=== PATIENT | female | born 1995 | race American Indian/Alaskan Native ===

== ENCOUNTER 2019-10-22 20:26 | Emergency (ER) | payer BC ==
--- NOTE | 2019-10-22 20:54 | EDM.PDOC ---
ED HPI GENERAL MEDICAL PROBLEM - General Chief Complaint: Abdominal Pain Stated Complaint: abdominal pain Time Seen by Provider: 10/22/19 20:44 Source of Information: Reports: Patient History Limitations: Reports: No Limitations - History of Present Illness INITIAL COMMENTS - FREE TEXT/NARRATIVE: Patient is a 24-year-old female who is 15 weeks who comes to the emergency department with having left-sided abdominal pain for the last 2 weeks which is gotten worse over the last 2 days. Patient describes his pain as episodic and sharp and stabbing in nature. She says it comes on for approximately 30 seconds and then goes away for 30 seconds. She was originally thinking this was round ligament pain but symptoms have gotten worse. Patient was seen at her clinic 4 days ago and diagnosed with a UTI and started on an antibiotic which he has not been able to fill. She denies any change in her pain with eating or with movement and denies any fever or shaking chills. Patient states she has not had similar symptoms in the past and denies any cramping type abdominal pain. She has no past surgical history. Duration: Day(s): (Two) Location: Reports: Abdomen Quality: Reports: Sharp, Stabbing Severity: Moderate Improves with: Reports: None Worsens with: Reports: None Associated Symptoms: Reports: No Other Symptoms. Denies: Fever/Chills, Loss of Appetite, Malaise, Nausea/Vomiting, Shortness of Breath abdominal Pain Score (Numeric/FACES): 8 - Related Data Allergies Allergy/AdvReac Type Severity Reaction Status Date / Time No Known Allergies Allergy Verified 10/22/19 20:47 Home Meds: Home Meds cephALEXin [Keflex] 500 mg PO Q8H 7 Days #21 cap 10/23/19 [Rx] Past Medical History - Past Health History Medical/Surgical History: Denies Medical/Surgical History HEENT History: Reports: None Cardiovascular History: Reports: None Respiratory History: Reports: None Gastrointestinal History: Reports: None Genitourinary History: Reports: None 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 MANAGER 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: 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: , Spontaneous Other FIELD CASE MANAGER History: 1 previous Spontaneous 06/14 Neurological History: Reports: None Psychiatric History: Reports: None Endocrine/Metabolic History: Reports: None Hematologic History: Reports: None Immunologic History: Reports: None Oncologic (Cancer) History: Reports: None Dermatologic History: Reports: None Social & Family History - Family History Family Medical History: Noncontributory Cardiac: Reports: Other (See Below) Other Cardiac Family History: father passed from heart disease Endocrine/Metabolic: Reports: Diabetes, Type I Other Endocrine/Metabolic Family History: father of patient had diabetes - Caffeine Use Caffeine Use: Reports: Coffee, Soda ED ROS GENERAL - Review of Systems Review Of Systems: Comprehensive ROS is negative, except as noted in HPI. ED EXAM, GI/ABD - Physical Exam Exam: See Below Exam Limited By: No Limitations General Appearance: Alert, No Apparent Distress Head: Atraumatic, Normocephalic Neck: Normal Inspection Respiratory/Chest: No Respiratory Distress, Lungs Clear, Normal Breath Sounds Cardiovascular: Regular Rate, Rhythm, No Edema, No JVD, No Murmur GI/Abdominal Exam: Normal Bowel Sounds, Tender (Patient does have right lower quadrant and left lower quadrant tenderness without rebound or guarding. She does have very mild psoas sign and possibly mild Rovsing.). No: Guarding, Rebound Back Exam: Normal Inspection. No: CVA Tenderness (L), CVA Tenderness (R) Extremities: Normal Inspection, No Pedal Edema Neurological: Alert, Oriented Psychiatric: Normal Affect Skin Exam: Warm, Dry, Normal Color Course - Vital Signs Text/Narrative:: Patient's white blood cell count and CMP were both normal. Patient's urine shows findings consistent with a urinary tract infection. I have ordered a limited ultrasound which we have had more than 1 hour delay for the reading since her having problem transmitting the images. Repeat abdominal exam show much less pain than previous and much less likely at this point to be appendicitis. Patient is feeling well. I will discharge her with instructions to return today for repeat exam unless symptoms have resolved. She may present to her OB's office or her PCPs or return to emergency department. She is aware she should return sooner if having any fever or chills, vomiting or worsening abdominal pain. I am starting her on cephalexin for her urinary tract infection. Last Recorded V/S: Last Vital Signs Temp 36.3 C 10/22/19 23:45 Pulse 90 10/22/19 23:45 Resp 18 10/22/19 23:45 BP 126/61 10/22/19 23:45 Pulse Ox 98 10/22/19 23:45 - Orders/Labs/Meds Orders: Active Orders 24 hr Category Date Time Status Abdomen Ltd [US] Stat Exams 10/22/19 22:03 Taken Labs: Laboratory Tests 10/22/19 10/22/19 10/22/19 Range/Units 20:49 21:18 21:18 WBC 9.83 (4.0-11.0) K/uL RBC 4.33 (4.30-5.90) M/uL Hgb 11.9 L (12.0-16.0) g/dL Hct 35.5 L (36.0-46.0) % MCV 82.0 (80.0-98.0) fL MCH 27.5 (27.0-32.0) pg MCHC 33.5 (31.0-37.0) g/dL RDW Std Deviation 43.3 (28.0-62.0) fl RDW Coeff of Hayley 14 (11.0-15.0) % Plt Count 242 (150-400) K/uL MPV 10.70 (7.40-12.00) fL Neut % (Auto) 73.8 (48.0-80.0) % Lymph % (Auto) 19.2 (16.0-40.0) % [place] % (Auto) 5.6 (0.0-15.0) % Eos % (Auto) 1.3 (0.0-7.0) % Baso % (Auto) 0.1 (0.0-1.5) % Neut # (Auto) 7.3 H (1.4-5.7) K/uL Lymph # (Auto) 1.9 (0.6-2.4) K/uL [place] # (Auto) 0.6 (0.0-0.8) K/uL Eos # (Auto) 0.1 (0.0-0.7) K/uL Baso # (Auto) 0.0 (0.0-0.1) K/uL Nucleated RBC % 0.0 /100WBC Nucleated RBCs # 0 K/uL Sodium 137 (136-145) mmol/L Potassium 3.4 L (3.5-5.1) mmol/L Chloride 102 (98-107) mmol/L Carbon Dioxide 21.5 (21.0-32.0) mmol/L BUN 5 L (7.0-18.0) mg/dL Creatinine 0.7 (0.6-1.0) mg/dL Est Cr Clr Drug Dosing 129.51 mL/min Estimated GFR (MDRD) > 60.0 ml/min Glucose 122 H (74-106) mg/dL Calcium 9.3 (8.5-10.1) mg/dL Total Bilirubin 0.2 (0.2-1.0) mg/dL AST 11 L (15-37) IU/L ALT 14 (14-63) IU/L Alkaline Phosphatase 67 (46-116) U/L Total Protein 7.3 (6.4-8.2) g/dL Albumin 3.4 (3.4-5.0) g/dL Globulin 3.9 (2.6-4.0) g/dL Albumin/Globulin Ratio 0.9 (0.9-1.6) Urine Color YELLOW Urine Appearance SLT CLOUDY Urine pH 6.0 (5.0-8.0) Ur Specific Copen 1.015 (1.001-1.035) Urine Protein NEGATIVE (NEGATIVE) mg/dL Urine Glucose (UA) NEGATIVE (NEGATIVE) mg/dL Urine Ketones TRACE H (NEGATIVE) mg/dL Urine Occult Blood NEGATIVE (NEGATIVE) Urine Nitrite NEGATIVE (NEGATIVE) Urine Bilirubin NEGATIVE (NEGATIVE) Urine Urobilinogen 1.0 (<2.0) EU/dL Ur Leukocyte Esterase MODERATE H (NEGATIVE) Urine RBC NONE SEEN (0-2/HPF) Urine WBC 3-5 (0-5/HPF) Ur Epithelial Cells FEW (NONE-FEW) Urine Bacteria 2+ H (NEGATIVE) Urine Mucus LIGHT (NONE-MOD) Meds: Medications Discontinued Medications Generic Name Dose Route Start Last Admin Trade Name Neno PRN Reason Stop Dose Admin Cephalexin 500 mg 10/22/19 23:53 10/22/19 23:58 Keflex PO 10/22/19 23:54 500 mg ONETIME ONE Administration Sodium Chloride 1,000 mls @ 999 mls/hr 10/22/19 21:01 10/22/19 22:30 Normal Saline IV 10/22/19 22:01 Not Given .BOLUS ONE Departure - Departure Time of Disposition: 00:40 Disposition: Home, Self-Care 01 Condition: Good Clinical Impression: Urinary tract infection affecting care of mother in first trimester, antepartum - Discharge Information Instructions: Urinary Tract Infection, Adult Referrals: Marie Serrato MD [Primary Care Provider] - Forms: ED Department Discharge Additional Instructions: The following information is given to patients seen in the emergency department who are being discharged to home. This information is to outline your options for follow-up care. We provide all patients seen in our emergency department with a follow-up referral. The need for follow-up, as well as the timing and circumstances, are variable depending upon the specifics of your emergency department visit. If you don't have a primary care physician on staff, we will provide you with a referral. We always advise you to contact your personal physician following an emergency department visit to inform them of the circumstance of the visit and for follow-up with them and/or the need for any referrals to a consulting specialist. The emergency department will also refer you to a specialist when appropriate. This referral assures that you have the opportunity for follow-up care with a specialist. All of these measure are taken in an effort to provide you with optimal care, which includes your follow-up. Under all circumstances we always encourage you to contact your private physician who remains a resource for coordinating your care. When calling for follow-up care, please make the office aware that this follow-up is from your recent emergency room visit. If for any reason you are refused follow-up, please contact the [facility] Emergency Department at and asked to speak to the emergency department charge nurse. Care Plan Goals: Recheck today who with either FIELD CASE MANAGER, PCP or return to emergency department. Tylenol as needed for symptoms. Keflex as prescribed. Return to ER sooner for any fever or chills, vomiting or worsening abdominal pain. Sepsis Event Note - Focused Exam Vital Signs: Vital Signs Temp Pulse Resp BP Pulse Ox 10/22/19 23:45 36.3 C 90 18 126/61 98 10/22/19 20:41 36.3 C 75 17 124/51 L 99 Date Exam was Performed: 10/23/19 Time Exam was Performed: 00:34 - My Orders Last 24 Hours: My Active Orders 10/22/19 22:03 Abdomen Ltd [US] Stat - Assessment/Plan Last 24 Hours: My Active Orders 10/22/19 22:03 Abdomen Ltd [US] Stat
[2019-10-22] MEDS ORDERED: Sodium Chloride 0.9% 1,000 ML IV ONE (21:01)
[2019-10-22 21:45] LABS: BLOOD UREA NITROGEN,BUN 5 mg/dL (7.0-18.0); CARBON DIOXIDE,CO2 21.5 mmol/L (21.0-32.0); CHLORIDE,CL 102 mmol/L (98-107); GLUCOSE RANDOM 122 mg/dL (74-106); POTASSIUM,K 3.4 mmol/L (3.5-5.1); SODIUM,NA 137 mmol/L (136-145)
[2019-10-22] MEDS ORDERED: Cephalexin 500 MG Cap PO ONE (23:53)
[2019-10-23 01:08] VITALS: BP 126/58; PULSE 89
--- NOTE | 2019-10-23 12:02 | US ---
INDICATION: Lower quadrant pain. Fifteen weeks . TECHNIQUE: Ultrasound of the right upper quadrant and right lower quadrant COMPARISON: None available FINDINGS: Liver: Limited evaluation. Unremarkable echotexture. No discrete abnormality visualized Gallbladder: No stones or sludge. Normal wall thickness. No pericholecystic fluid. Common bile duct: 2 mm. Right kidney: 12.4 cm. Unremarkable echotexture and cortex. No hydronephrosis. Right lower quadrant: The appendix is not visualized. No regional free fluid or fluid collection visualized. Other: An intrauterine gestation partially imaged, not well evaluated. A single image of the bladder demonstrates apparent bladder wall thickening which could be related to underdistention. IMPRESSION: Grossly unremarkable right upper quadrant ultrasound. The appendix is not seen. Please note that sonographic nonvisualization of the appendix does not exclude appendicitis. If there is high clinical concern, further evaluation with noncontrast MRI should be considered. An intrauterine gestation, not well evaluated on this examination. Apparent bladder wall thickening versus underdistention. Correlate with urinalysis to exclude cystitis/UTI. Dictated by Sylvester Mcneal MD @ 10/23/2019 1:10:23 AM JOSI
== END 2019-10-23 01:02 | disposition home or self-care (01) ==
LOC: MW.ED 20:26
DX: O23.41 Unspecified infection of urinary tract in pregnancy, first trimester (principal); Z3A.15 15 weeks gestation of pregnancy
CPT/HCPCS: 36415; 76705; 80053; 81001; 85025; 99284; A9270

== ENCOUNTER 2020-03-29 22:01 | Inpatient (IN) | payer BC, OTHER ==
[2020-03-29] MEDS ORDERED: Carboprost Tromethamine 250 MCG/1 ML Amp IM PRN (23:43)
[2020-03-29] MEDS ORDERED: Sodium Chloride 0.9% 10 ML Syringe FLUSH PRN (23:43)
[2020-03-29] MEDS ORDERED: Sodium Chloride 0.9% 10 ML SDV IV PRN (23:43)
[2020-03-29] MEDS ORDERED: Sodium Chloride 0.9% 2.5 ML Syringe FLUSH PRN (23:43)
[2020-03-29] MEDS ORDERED: Tranexamic Acid 1,000 MG in Sodium Chloride 0.9% 100 ML IV PRN (23:43)
[2020-03-29] MEDS ORDERED: Methylergonovine 0.2 MG/1 ML Amp IM PRN (23:43)
[2020-03-29] MEDS ORDERED: Water For Irrigation,Sterile 1,000 ML Container IRR PRN (23:43)
[2020-03-29] MEDS ORDERED: Nalbuphine 10 MG/1 ML Vial IVPUSH PRN (23:43)
[2020-03-29] MEDS ORDERED: Lidocaine 1% 50 ML MDV INJECT PRN (23:43)
[2020-03-29] MEDS ORDERED: Butorphanol 1 MG/ML SDV IVPUSH PRN (23:43)
[2020-03-29] MEDS ORDERED: Misoprostol 200 MCG Tab PO PRN (23:43)
[2020-03-29] MEDS ORDERED: Oxytocin/0.9 % Sodium Chloride 30 UNIT/500 ML BAG IV SCH (23:45)
[2020-03-30] MEDS: Lactated Ringers 1,000 ML IV SCH ×2 (08:09→08:48)
[2020-03-30] MEDS ORDERED: Ropivacaine HCl/PF 100 ML ONE (08:22)
[2020-03-30] MEDS ORDERED: fentaNYL 100 MCG/2 ML SDV ONE (08:22)
--- NOTE | 2020-03-30 08:43 | PCM.PREANE ---
Preanesthetic Assessment - Anesthesia/Transfusion/Family Hx Anesthesia History: Prior Anesthesia Without Reaction Family History of Anesthesia Reaction: No Transfusion History: No Prior Transfusion(s) Intubation History: Unknown - Physical Assessment NPO Status Date: 03/29/20 NPO Status Time: 21:00 Height: 1.75 m Weight: 97.976 kg ASA Class: 2 - Lab Values: Laboratory Last Values WBC 10.71 K/uL (4.0-11.0) 03/29/20 23:58 RBC 3.85 M/uL (4.30-5.90) L 03/29/20 23:58 Hgb 9.9 g/dL (12.0-16.0) L 03/29/20 23:58 Hct 30.4 % (36.0-46.0) L 03/29/20 23:58 MCV 79.0 fL (80.0-98.0) L 03/29/20 23:58 MCH 25.7 pg (27.0-32.0) L 03/29/20 23:58 MCHC 32.6 g/dL (31.0-37.0) 03/29/20 23:58 RDW Std Deviation 41.5 fl (28.0-62.0) 03/29/20 23:58 RDW Coeff of Hayley 15 % (11.0-15.0) 03/29/20 23:58 Plt Count 266 K/uL (150-400) 03/29/20 23:58 MPV 10.90 fL (7.40-12.00) 03/29/20 23:58 COVID-19 (VANIA) NEGATIVE (NEGATIVE) 03/30/20 00:05 Blood Type O POSITIVE 03/29/20 23:58 Antibody Screen NEGATIVE 03/29/20 23:58 - Allergies Allergies/Adverse Reactions: Allergies Allergy/AdvReac Type Severity Reaction Status Date / Time No Known Allergies Allergy Verified 03/29/20 23:43 - Acknowledgements Anesthesia Type Planned: Epidural Pt an Appropriate Candidate for the Planned Anesthesia: Yes Alternatives and Risks of Anesthesia Discussed w Pt/Guardian: Yes Pt/Guardian Understands and Agrees with Anesthesia Plan: Yes PreAnesthesia Questionnaire - Past Health History Medical/Surgical History: Denies Medical/Surgical History HEENT History: Reports: None Cardiovascular History: Reports: None Respiratory History: Reports: None Gastrointestinal History: Reports: None Genitourinary History: Reports: None 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: , 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 Other OB/BYN History: 1 previous Spontaneous 06/14 Neurological History: Reports: None Psychiatric History: Reports: None Endocrine/Metabolic History: Reports: None Hematologic History: Reports: None Immunologic History: Reports: None Oncologic (Cancer) History: Reports: None Dermatologic History: Reports: None - SUBSTANCE USE Smoking Status *Q: Former Smoker Tobacco Use Within Last Twelve Months: No Second Hand Smoke Exposure: No Recreational Drug Use History: No - HOME MEDS Home Medications: Home Meds cephALEXin [Keflex] 500 mg PO Q8H 7 Days #21 cap 10/23/19 [Rx] - CURRENT (IN HOUSE) MEDS Current Meds: Current Medications Butorphanol Tartrate (Stadol) 1 mg IVPUSH Q1H PRN PRN Reason: Pain Carboprost Tromethamine (Hemabate Ds) 250 mcg IM ASDIRECTED PRN PRN Reason: Post Hemorrhage Oxytocin/Sodium Chloride (Oxytocin 30 Unit/500 Ml-Ns) 30 unit in 500 mls @ 500 mls/hr IV TITRATE [facility] Tranexamic Acid 1,000 mg/ (Sodium Chloride) 110 mls @ 660 mls/hr IV ONETIME PRN PRN Reason: Bleeding Lactated Ringer's (Ringers, Lactated) 1,000 mls @ 150 mls/hr IV ASDIRECTED [facility] Last Admin: 03/30/20 08:09 Dose: 999 mls/hr Documented by: Lidocaine HCl (Xylocaine 1%) 50 ml INJECT ONETIME PRN PRN Reason: Laceration repair Methylergonovine Maleate (Methergine) 0.2 mg IM ASDIRECTED PRN PRN Reason: Post Hemorrhage Misoprostol (Cytotec) 200 mcg PO ONETIME PRN PRN Reason: Post Hemorrhage Nalbuphine HCl (Nubain) 10 mg IVPUSH Q1H PRN PRN Reason: Pain (severe 7-10) Sodium Chloride (Saline Flush) 10 ml FLUSH ASDIRECTED PRN PRN Reason: Keep Vein Open Sodium Chloride (Saline Flush) 2.5 ml FLUSH ASDIRECTED PRN PRN Reason: Keep Vein Open Sodium Chloride (Normal Saline) 10 ml IV ASDIRECTED PRN PRN Reason: IV Use Sterile Water (Sterile Water For Irrigation) 1,000 ml IRR ASDIRECTED PRN PRN Reason: delivery Discontinued Medications Fentanyl (Sublimaze) Confirm Administered Dose 100 mcg .ROUTE .STK-MED ONE Stop: 03/30/20 08:23 Ropivacaine (Naropin 0.2%) Confirm Administered Dose 100 mls @ as directed .ROUTE .STK-MED ONE Stop: 03/30/20 08:23
--- NOTE | 2020-03-30 08:48 | PCM.PRNOTE ---
- Free Text/Narrative Note: Anes Note Patient requests epidural for L&D. Sitting position, level L3-L4 midlines approach. Sterile technique. Chloraprep scrub to lumbar area. Sterile fenestrated drape applied. Epidural space easily achieved singl attempt using TOÑITO technique. TOÑITO at 5 cm. Cath threaded 5 cm with ease. Cath secured a t11 cm at skin using sterle clear adhesive dressing. 0828 text 3 cc 1.5% lido with epi negative. 0834 Load 10 cc 0.2% ropiv with 1 mcg cc fentanyl in slow divided doses. 0843 Pump started with 90 cc same solution. Rate is 8 cc hr with 6 cc q 20 min prn bolus. Erlinda well. 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
[2020-03-30] MEDS ORDERED: Acetaminophen 500 MG Tab PO PRN ×2 (11:29)
[2020-03-30] MEDS ORDERED: Ibuprofen 400 MG Tab PO PRN (11:29)
[2020-03-30] MEDS ORDERED: oxyCODONE 5 MG Tab PO PRN (11:29)
[2020-03-30] MEDS ORDERED: Bisacodyl 10 MG Supp RECTAL PRN (11:29)
[2020-03-30] MEDS ORDERED: Docusate Sodium 100 MG Cap PO PRN (11:29)
[2020-03-30] MEDS ORDERED: Lanolin 100% Cream 7 GM Tube TOP PRN (11:29)
[2020-03-30] MEDS ORDERED: Benzocaine/Menthol 20%-0.5% Spray 78 GM Cannister TOP PRN (11:29)
[2020-03-30] MEDS ORDERED: Witch Hazel Medicated Pads 40/Jar TOP PRN (11:29)
--- NOTE | 2020-03-30 11:36 | PCM.OPNOTE ---
- General Post-Op/Procedure Note Date of Surgery/Procedure: 03/30/20 Operative Procedure(s): /IP Findings: Viable female APGARs 8, 9 weight 4000 gm. Spontaneous delivery intact placenta with 3V cord Pre Op Diagnosis: 38/1 week IUP. Labor Post-Op Diagnosis: same Anesthesia Technique: Epidural Primary Surgeon: Marie Serrato EBL in mLs: 250 Complications: none known Condition: Good Free Text/Narrative:: Intake & Output 03/29/20 03/30/20 03/30/20 22:59 06:59 14:59 Intake Total 1999 Balance 1999 Dictation [id number]
--- NOTE | 2020-03-30 15:56 | OR ---
SURGEON: Marie Serrato M.D. DATE OF PROCEDURE: 03/30/2020 PREOPERATIVE DIAGNOSES: 1. A 38-1/7 weeks' intrauterine . 2. Active labor. POSTOPERATIVE DIAGNOSES: 1. A 38-1/7 weeks' intrauterine . 2. Active labor. PROCEDURE: Spontaneous vaginal delivery, intact perineum. PRIMARY SURGEON: Marie Serrato MD ANESTHESIA: Epidural. ESTIMATED BLOOD LOSS: 250 mL. COMPLICATIONS: None known. FINDINGS: Viable female. score of 8 at one minute and 9 at five minutes. Weight of 4000 g. Spontaneous delivery, intact placenta, 3-vessel cord. DISPOSITION: Infant to nursery, mom in LDRP. PROCEDURE DETAILS: Haley is a 24-year-old, G4, P 2-0-1-2, at 38-1/7 weeks' gestational age who presents with contractions. On observation, found to be 4 cm with regular contractions. She is group B beta strep negative. Therefore, she was admitted, routine labs were drawn, IV hydration was initiated. She underwent amniotomy shortly before 8 a.m., clear fluid was returned. Became increasingly uncomfortable, underwent regional anesthesia in the form of epidural. Thereafter, she was found to be 5 to 6 cm and within the next hour and a half progressed to complete, 100% effaced, +2 station. Began pushing efforts, pushed readily to a +3 station. I was called for delivery. Upon my arrival, the patient was placed in modified dorsal lithotomy position. Was prepped and draped in usual aseptic manner. Continued with pushing efforts. Was able to deliver 's head atraumatically spontaneously, followed by anterior shoulder, posterior shoulder, and remainder of the body without difficulty. Infant's oropharynx and nares were bulb suctioned. Infant was handed off to her mother with attending nursery staff at the side. After a delay, cord was clamped x2 and cut. Cord arterial, cord venous, cord blood sampling obtained. Light pressure was applied while the placenta was delivered spontaneously intact. Vigorous fundal uterine massage was then applied while 30 units of Pitocin was delivered in 500 mL of IV fluid. Upon inspection of cervix, vaginal sidewall, and perineum, these were found to be intact. Uterus remained firm. Hemostasis evident. Sponge count and instrument count were correct and needle count was correct. The patient will remain in LDRP, to nursery. GOLDY / RITA /[id number]
[2020-03-30] MEDS: Ibuprofen 800 MG Tab PO PRN (18:25)
[2020-03-31] MEDS: Ibuprofen 800 MG Tab PO PRN (02:42)
--- NOTE | 2020-03-31 07:03 | PCM.PN ---
<Kel Krause - Last Filed: 03/31/20 06:56> - General Info Date of Service: 03/31/20 Functional Status: Reports: Pain Controlled, Tolerating Diet, Ambulating, Urinating Pain Score: 0 - Review of Systems General: Reports: No Symptoms HEENT: Reports: No Symptoms Pulmonary: Reports: No Symptoms Cardiovascular: Reports: No Symptoms Gastrointestinal: Reports: No Symptoms Genitourinary: Reports: No Symptoms Musculoskeletal: Reports: No Symptoms Skin: Reports: No Symptoms Neurological: Reports: No Symptoms Psychiatric: Reports: No Symptoms - Patient Data Vitals - Most Recent: Last Vital Signs Temp 36.4 C 03/31/20 04:44 Pulse 79 03/31/20 04:44 Resp 15 03/31/20 04:44 BP 117/56 L 03/31/20 04:44 Pulse Ox 95 03/31/20 04:44 Weight - Most Recent: 97.976 kg I&O - Last 24 Hours: Intake & Output 03/30/20 03/30/20 03/31/20 14:59 22:59 06:59 Intake Total 3000 Balance 3000 Lab Results Last 24 Hours: Laboratory Results - last 24 hr 03/30/20 03/31/20 Range/Units 11:10 05:35 Hgb 9.4 L (12.0-16.0) g/dL Hct 29.3 L (36.0-46.0) % Cord ABG pH 7.342 (7.18-7.38) Cord ABG Base Excess -5 (-10--2) Cord VBG pH 7.345 (7.25-7.45) Cord VBG Base Excess -4 (-10--2) Med Orders - Current: Current Medications Acetaminophen (Tylenol Extra Strength) 500 mg PO Q4H PRN PRN Reason: Pain Acetaminophen (Tylenol Extra Strength) 1,000 mg PO Q4H PRN PRN Reason: Pain Benzocaine/Menthol (Dermoplast Pain Relief 20%-0.5% [place]) 78 gm TOP ASDIRECTED PRN PRN Reason: Perineal Comfort Measure Last Admin: 03/30/20 14:12 Dose: 1 canister Documented by: Bisacodyl (Dulcolax) 10 mg RECTAL ONETIME PRN PRN Reason: Constipation Carboprost Tromethamine (Hemabate Ds) 250 mcg IM ASDIRECTED PRN PRN Reason: Post Hemorrhage Docusate Sodium (Colace) 100 mg PO BID PRN PRN Reason: Constipation Emollient Ointment (Lansinoh Hpa) 0 gm TOP ASDIRECTED PRN PRN Reason: Sore Nipples Last Admin: 03/30/20 14:13 Dose: 1 tube Documented by: Oxytocin/Sodium Chloride (Oxytocin 30 Unit/500 Ml-Ns) 30 unit in 500 mls @ 500 mls/hr IV TITRATE [facility] Last Admin: 03/30/20 11:11 Dose: 500 mls/hr Documented by: Tranexamic Acid 1,000 mg/ (Sodium Chloride) 110 mls @ 660 mls/hr IV ONETIME PRN PRN Reason: Bleeding Lactated Ringer's (Ringers, Lactated) 1,000 mls @ 150 mls/hr IV ASDIRECTED [facility] Last Admin: 03/30/20 08:48 Dose: 500 mls/hr Documented by: Ibuprofen (Motrin) 400 mg PO Q4H PRN PRN Reason: Pain Ibuprofen (Motrin) 800 mg PO Q6H PRN PRN Reason: Pain Last Admin: 03/31/20 02:42 Dose: 800 mg Documented by: Methylergonovine Maleate (Methergine) 0.2 mg IM ASDIRECTED PRN PRN Reason: Post Hemorrhage Oxycodone HCl (Oxycodone) 5 mg PO Q2H PRN PRN Reason: Pain Sodium Chloride (Saline Flush) 10 ml FLUSH ASDIRECTED PRN PRN Reason: Keep Vein Open Sodium Chloride (Saline Flush) 2.5 ml FLUSH ASDIRECTED PRN PRN Reason: Keep Vein Open Sodium Chloride (Normal Saline) 10 ml IV ASDIRECTED PRN PRN Reason: IV Use Sterile Water (Sterile Water For Irrigation) 1,000 ml IRR ASDIRECTED PRN PRN Reason: delivery Last Admin: 03/30/20 11:05 Dose: 1,000 ml Documented by: Teri Cardoza (Nay) 1 pad TOP ASDIRECTED PRN PRN Reason: comfort care Last Admin: 03/30/20 14:12 Dose: 1 tub Documented by: Discontinued Medications Butorphanol Tartrate (Stadol) 1 mg IVPUSH Q1H PRN PRN Reason: Pain Fentanyl (Sublimaze) Confirm Administered Dose 100 mcg .ROUTE .STK-MED ONE Stop: 03/30/20 08:23 Ropivacaine (Naropin 0.2%) Confirm Administered Dose 100 mls @ as directed .ROUTE .STK-MED ONE Stop: 03/30/20 08:23 Lidocaine HCl (Xylocaine 1%) 50 ml INJECT ONETIME PRN PRN Reason: Laceration repair Misoprostol (Cytotec) 200 mcg PO ONETIME PRN PRN Reason: Post Hemorrhage Nalbuphine HCl (Nubain) 10 mg IVPUSH Q1H PRN PRN Reason: Pain (severe 7-10) - Exam General: Alert, Oriented, Cooperative, No Acute Distress HEENT: Pupils Equal, Pupils Reactive, EOMI, Mucous Membr. Moist/[place] Neck: Supple, Trachea Midline, No JVD Lungs: Clear to Auscultation, Normal Respiratory Effort Cardiovascular: Regular Rate, Regular Rhythm, No Murmurs GI/Abdominal Exam: Normal Bowel Sounds, Soft, Non-Tender, No Organomegaly Extremities: Normal Inspection, Non-Tender, No Pedal Edema, Normal Capillary Refill Peripheral Pulses: 2+: Radial (L), Radial (R), Posterior Tibial (L), Posterior Tibial (R) Skin: Warm, Dry, Intact, Moist Neurological: No New Focal Deficit, Normal Speech, Normal Tone Psy/Mental Status: Alert, Normal Affect, Normal Mood Physical Findings Comments:: No new episodes overnight. Has no complaints and anticipates discharge today Sepsis Event Note - Evaluation Sepsis Screening Result: No Definite Risk - Focused Exam Vital Signs: Vital Signs Temp Pulse Resp BP Pulse Ox 03/31/20 04:44 36.4 C 79 15 117/56 L 95 03/30/20 19:39 36.4 C 92 17 124/73 98 - Problem List & Annotations (1) Vaginal delivery SNOMED Code(s): 027133671 Code(s): O80 - ENCOUNTER FOR FULL-TERM UNCOMPLICATED DELIVERY Status: Resolved Current Visit: Yes Onset Date: ~03/30/20 - Problem List Review Problem List Initiated/Reviewed/Updated: Yes - Plan Plan:: Baby and mom are both doing well. Baby is 100% breastfed. If no other acute event, may discharge to home today. Follow up with PCP for possible anemia (Hgb = 9.4, Hct = 29.3) The patient was seen and evaluated by medical student (KEL KRAUSE). I appreciate the opportunity to be involved in the care of this patient. <AmaMarie R - Last Filed: 03/31/20 08:23> - Patient Data Vitals - Most Recent: Last Vital Signs Temp 36.2 C 03/31/20 07:30 Pulse 72 03/31/20 07:30 Resp 15 03/31/20 07:30 BP 109/64 03/31/20 07:30 Pulse Ox 97 03/31/20 07:30 Lab Results Last 24 Hours: Laboratory Results - last 24 hr 03/30/20 03/31/20 Range/Units 11:10 05:35 Hgb 9.4 L (12.0-16.0) g/dL Hct 29.3 L (36.0-46.0) % Cord ABG pH 7.342 (7.18-7.38) Cord ABG Base Excess -5 (-10--2) Cord VBG pH 7.345 (7.25-7.45) Cord VBG Base Excess -4 (-10--2) Med Orders - Current: Current Medications Acetaminophen (Tylenol Extra Strength) 500 mg PO Q4H PRN PRN Reason: Pain Acetaminophen (Tylenol Extra Strength) 1,000 mg PO Q4H PRN PRN Reason: Pain Benzocaine/Menthol (Dermoplast Pain Relief 20%-0.5% [place]) 78 gm TOP ASDIRECTED PRN PRN Reason: Perineal Comfort Measure Last Admin: 03/30/20 14:12 Dose: 1 canister Documented by: Bisacodyl (Dulcolax) 10 mg RECTAL ONETIME PRN PRN Reason: Constipation Carboprost Tromethamine (Hemabate Ds) 250 mcg IM ASDIRECTED PRN PRN Reason: Post Hemorrhage Docusate Sodium (Colace) 100 mg PO BID PRN PRN Reason: Constipation Emollient Ointment (Lansinoh Hpa) 0 gm TOP ASDIRECTED PRN PRN Reason: Sore Nipples Last Admin: 03/30/20 14:13 Dose: 1 tube Documented by: Oxytocin/Sodium Chloride (Oxytocin 30 Unit/500 Ml-Ns) 30 unit in 500 mls @ 500 mls/hr IV TITRATE [facility] Last Admin: 03/30/20 11:11 Dose: 500 mls/hr Documented by: Tranexamic Acid 1,000 mg/ (Sodium Chloride) 110 mls @ 660 mls/hr IV ONETIME PRN PRN Reason: Bleeding Lactated Ringer's (Ringers, Lactated) 1,000 mls @ 150 mls/hr IV ASDIRECTED [facility] Last Admin: 03/30/20 08:48 Dose: 500 mls/hr Documented by: Ibuprofen (Motrin) 400 mg PO Q4H PRN PRN Reason: Pain Ibuprofen (Motrin) 800 mg PO Q6H PRN PRN Reason: Pain Last Admin: 03/31/20 02:42 Dose: 800 mg Documented by: Methylergonovine Maleate (Methergine) 0.2 mg IM ASDIRECTED PRN PRN Reason: Post Hemorrhage Oxycodone HCl (Oxycodone) 5 mg PO Q2H PRN PRN Reason: Pain Sodium Chloride (Saline Flush) 10 ml FLUSH ASDIRECTED PRN PRN Reason: Keep Vein Open Sodium Chloride (Saline Flush) 2.5 ml FLUSH ASDIRECTED PRN PRN Reason: Keep Vein Open Sodium Chloride (Normal Saline) 10 ml IV ASDIRECTED PRN PRN Reason: IV Use Sterile Water (Sterile Water For Irrigation) 1,000 ml IRR ASDIRECTED PRN PRN Reason: delivery Last Admin: 03/30/20 11:05 Dose: 1,000 ml Documented by: Teri Cardoza ([facility]) 1 pad TOP ASDIRECTED PRN PRN Reason: comfort care Last Admin: 03/30/20 14:12 Dose: 1 tub Documented by: Discontinued Medications Butorphanol Tartrate (Stadol) 1 mg IVPUSH Q1H PRN PRN Reason: Pain Fentanyl (Sublimaze) Confirm Administered Dose 100 mcg .ROUTE .STK-MED ONE Stop: 03/30/20 08:23 Ropivacaine (Naropin 0.2%) Confirm Administered Dose 100 mls @ as directed .ROUTE .STK-MED ONE Stop: 03/30/20 08:23 Lidocaine HCl (Xylocaine 1%) 50 ml INJECT ONETIME PRN PRN Reason: Laceration repair Misoprostol (Cytotec) 200 mcg PO ONETIME PRN PRN Reason: Post Hemorrhage Nalbuphine HCl (Nubain) 10 mg IVPUSH Q1H PRN PRN Reason: Pain (severe 7-10) Sepsis Event Note - Focused Exam Vital Signs: Vital Signs Temp Pulse Resp BP Pulse Ox 03/31/20 07:30 36.2 C 72 15 109/64 97 03/31/20 04:44 36.4 C 79 15 117/56 L 95 - My Orders Last 24 Hours: My Active Orders 03/30/20 Lunch Regular Diet [DIET] 03/30/20 11:29 Patient Status [ADT] Routine May Shower [RC] ASDIRECTED Notify Provider Vital Signs [RC] ASDIRECTED Up ad Janie [RC] ASDIRECTED Vital Signs [RC] PER UNIT ROUTINE Acetaminophen [Tylenol Extra Strength] 1,000 mg PO Q4H PRN Acetaminophen [Tylenol Extra Strength] 500 mg PO Q4H PRN Benzocaine/Menthol [Dermoplast Pain Relief 20%-0.5% [place]] 78 gm TOP ASDIRECTED PRN Docusate Sodium [Colace] 100 mg PO BID PRN Ibuprofen [Motrin] 400 mg PO Q4H PRN Ibuprofen [Motrin] 800 mg PO Q6H PRN Lanolin [Lansinoh HPA] See Dose Instructions TOP ASDIRECTED PRN bisacodyL [Dulcolax] 10 mg RECTAL ONETIME PRN oxyCODONE 5 mg PO Q2H PRN witch Trell [Tucks] 1 pad TOP ASDIRECTED PRN Assess Lochia [WOMSER] Per Unit Routine Assess Uterine Involution [WOMSER] Per Unit Routine Peripheral IV Discontinue [OM.PC] Routine 03/30/20 11:30 Ice Therapy [OM.PC] Per Unit Routine Perineal Care [OM.PC] Per Unit Routine Sitz Bath [OM.PC] Per Unit Routine - Plan Plan:: Patient seen and examined. VS and labs stable. Discharge instructions reviewed. Follow up at [facility] 6 weeks. Infection and bleeding warnings reviewed. Begin oral iron supplementation and reevaluate CBC at PP visit. Discharge to home today.
--- NOTE | 2020-03-31 07:10 | PCM48HPAN ---
Post Anesthesia Note - EVALUATION WITHIN 48HRS OF ANESTHETIC Vital Signs in Normal Range: Yes Patient Participated in Evaluation: Yes Respiratory Function Stable: Yes Airway Patent: Yes Cardiovascular Function Stable: Yes Hydration Status Stable: Yes Pain Control Satisfactory: Yes Nausea and Vomiting Control Satisfactory: Yes Mental Status Recovered: Yes Vital Signs: Last Vital Signs Temp 36.4 C 03/31/20 04:44 Pulse 79 03/31/20 04:44 Resp 15 03/31/20 04:44 BP 117/56 L 03/31/20 04:44 Pulse Ox 95 03/31/20 04:44
[2020-03-31 19:32] VITALS: BP 122/70; PULSE 85
== END 2020-03-31 20:58 | disposition home or self-care (01) | DRG 560 ==
LOC: MW.OB 22:01 → MW.OBCHECK 22:01 → MW.OB 23:44 → OBSVTOIN 03-30 11:10 → MW.OB 03-30 14:57
PROVIDERS: ADMIT Obstetrics & Gynecology; ATTEND Obstetrics & Gynecology
PROC: 10907ZC Drainage of Amniotic Fluid, Therapeutic from Products of Conception, Via Natural or Artificial Opening (ICD-10-PCS; principal; 2020-03-30)
PROC: 10E0XZZ Delivery of Products of Conception, External Approach (ICD-10-PCS; 2020-03-30)
PROC: 4A1HXCZ Monitoring of Products of Conception, Cardiac Rate, External Approach (ICD-10-PCS; 2020-03-30)
PROC: 3E0R3BZ Introduction of Anesthetic Agent into Spinal Canal, Percutaneous Approach (ICD-10-PCS; 2020-03-30)
PROC: 00HU33Z Insertion of Infusion Device into Spinal Canal, Percutaneous Approach (ICD-10-PCS; 2020-03-30)
DX: O80 Encounter for full-term uncomplicated delivery (principal); Z3A.38 38 weeks gestation of pregnancy; Z37.0 Single live birth; Z87.891 Personal history of nicotine dependence; Z20.828 Contact with and (suspected) exposure to other viral communicable diseases
CPT/HCPCS: 01967; 36415; 51702; 59025; 59409; 82803; 85014; 85018; 85027; 86592; 86850; 86900; 86901; A9270-GY; J2590; J7120; U0002

== ENCOUNTER 2023-03-09 09:56 | Inpatient (IN) | payer BC ==
[2023-03-09] MEDS ORDERED: Ibuprofen 400 MG Tab PO PRN (13:59)
[2023-03-09] MEDS ORDERED: Methylergonovine 0.2 MG/1 ML Amp IM PRN (13:59)
[2023-03-09] MEDS ORDERED: Benzocaine/Menthol 20%-0.5% Spray 78 GM Cannister TOP PRN (13:59)
[2023-03-09] MEDS ORDERED: Lanolin 100% Cream 7 GM Tube TOP PRN (13:59)
[2023-03-09] MEDS ORDERED: Oxytocin 10 Units/1 ML SDV IM PRN (13:59)
[2023-03-09] MEDS ORDERED: Tranexamic Acid 1,000 MG in Sodium Chloride 0.9% 100 ML IV PRN (13:59)
[2023-03-09] MEDS ORDERED: oxyCODONE 5 MG Tab PO PRN (13:59)
[2023-03-09] MEDS ORDERED: Acetaminophen 500 MG Tab PO PRN ×2 (13:59)
[2023-03-09] MEDS ORDERED: Docusate Sodium 100 MG Cap PO PRN (13:59)
[2023-03-09] MEDS ORDERED: Bisacodyl 10 MG Supp RECTAL PRN (13:59)
[2023-03-09] MEDS ORDERED: Witch Hazel Medicated Pads 40/Jar TOP PRN (13:59)
[2023-03-09] MEDS ORDERED: Measles, Mumps & Rubella Vaccine 0.5 ML SDV SUBCUT ONE (14:07)
[2023-03-09] MEDS: Ibuprofen 800 MG Tab PO PRN ×2 (14:48→23:17)
[2023-03-10 05:46] LABS: HEMATOCRIT 25.7 % (36.0-46.0); HEMOGLOBIN 8.4 g/dL (12.0-16.0)
[2023-03-10 11:39] VITALS: BP 110/62; PULSE 82
== END 2023-03-10 14:05 | disposition home or self-care (01) | DRG 561 ==
LOC: MW.OB 09:56
PROVIDERS: ADMIT Obstetrics & Gynecology; ATTEND Obstetrics & Gynecology
PROC: 3E0134Z Introduction of Serum, Toxoid and Vaccine into Subcutaneous Tissue, Percutaneous Approach (ICD-10-PCS; principal; 2023-03-09)
DX: O99.03 Anemia complicating the puerperium (principal); D64.9 Anemia, unspecified; Z23 Encounter for immunization
CPT/HCPCS: 36415; 85014; 85018; 90471; 90707; A9270-GY

== ENCOUNTER 2025-04-03 17:37 | Inpatient (IN) | payer MEDICAID, OTHER ==
[2025-04-03] MEDS ORDERED: Sodium Chloride 0.9% 2.5 ML Syringe FLUSH PRN (21:18)
[2025-04-03] MEDS ORDERED: Ondansetron 4 MG/2 ML SDV IVPUSH PRN (21:18)
[2025-04-03] MEDS ORDERED: Carboprost Tromethamine 250 MCG/1 mL Vial IM PRN (21:18)
[2025-04-03] MEDS ORDERED: Butorphanol 1 MG/ML SDV IVPUSH PRN (21:18)
[2025-04-03] MEDS ORDERED: Sodium Chloride 0.9% 10 ML Syringe FLUSH PRN (21:18)
[2025-04-03] MEDS ORDERED: Water For Irrigation,Sterile 1,000 ML Container IRR PRN (21:18)
[2025-04-03] MEDS ORDERED: Oxytocin/0.9 % Sodium Chloride 30 UNIT/500 ML BAG IV SCH (21:30)
[2025-04-03 22:20] LABS: MEAN PLATELET VOLUME 10.3 fL (9.4-12.3); NRBC ABSOLUTE 0.00 K/uL (0.00-0.02); NRBC PERCENT 0.0 /100WBC (0.0-0.2); PLATELET COUNT,PLT 267 K/uL (150-400); RED BLOOD CELL COUNT 3.58 M/uL (4.10-5.30); WHITE BLOOD CELL COUNT,WBC 13.00 K/uL (3.9-11.3)
[2025-04-04] MEDS ORDERED: Terbutaline 1 MG/ML SDV SUBCUT PRN (13:08)
[2025-04-04] MEDS ORDERED: Oxytocin/0.9 % Sodium Chloride 30 UNIT/500 ML BAG IV SCH (13:15)
[2025-04-04] MEDS: Lactated Ringers 1,000 ML IV SCH (20:42)
[2025-04-04] MEDS ORDERED: dexmedeTOMIDine HCl 200 MCG/2 ML SDV ONE (21:25)
[2025-04-04] MEDS ORDERED: Ropivacaine HCl/PF 200 ML ONE (21:26)
[2025-04-04] MEDS: Ropivacaine HCl/PF 400 MG in Premix Bag 1 BAG EPIDUR SCH (21:40)
[2025-04-04] MEDS ORDERED: ePHEDrine 50 MG/ML SDV IVPUSH PRN (21:47)
[2025-04-04] MEDS ORDERED: dexmedeTOMIDine HCl 200 MCG/2 ML SDV EPIDUR SCH (22:00)
[2025-04-04] MEDS ORDERED: Witch Hazel Medicated Pads 40/Jar TOP PRN (23:28)
[2025-04-04] MEDS ORDERED: Benzocaine/Menthol 20%-0.5% Spray 78 GM Cannister TOP PRN (23:28)
[2025-04-04] MEDS ORDERED: Aluminum Hydroxide/Magnesium Hydroxide/Simethicone Susp 30 ML Cup PO PRN (23:28)
[2025-04-04] MEDS ORDERED: Lanolin 100% Cream 7 GM Tube TOP PRN (23:28)
[2025-04-04] MEDS ORDERED: Measles, Mumps & Rubella Vaccine 0.5 ML SDV SUBCUT ONE (23:41)
[2025-04-05 00:03] LABS: PH,UMBILICAL ARTERIAL 7.31 (7.18-7.38); PH,UMBILICAL VENOUS 7.38 (7.25-7.45)
[2025-04-05 06:55] LABS: BASOPHILS ABSOLUTE AUTO 0.03 K/uL (0.00-0.20); BASOPHILS PERCENT AUTO 0.2 % (0.0-1.0); EOSINOPHILS ABSOLUTE AUTO 0.08 K/uL (0.00-0.45); EOSINOPHILS PERCENT AUTO 0.5 % (0.0-6.0); IMMATURE GRAN ABSOLUTE AUTO 0.06 K/uL (0.00-0.05); IMMATURE GRAN PERCENT AUTO 0.4 % (0.0-0.4); LYMPHOCYTES ABSOLUTE AUTO 1.67 K/uL (1.00-4.80); LYMPHOCYTES PERCENT AUTO 10.9 % (24.0-44.0); MEAN PLATELET VOLUME 10.7 fL (9.4-12.3); MONOCYTES ABSOLUTE AUTO 1.23 K/uL (0.00-0.80); MONOCYTES PERCENT AUTO 8.0 % (0.0-8.0); NEUTROPHILS ABSOLUTE AUTO 12.27 K/uL (1.80-7.70); NEUTROPHILS PERCENT AUTO 80.0 % (41.0-71.0); NRBC ABSOLUTE 0.00 K/uL (0.00-0.02); NRBC PERCENT 0.0 /100WBC (0.0-0.2); PLATELET COUNT,PLT 246 K/uL (150-400); RED BLOOD CELL COUNT 3.43 M/uL (4.10-5.30); WHITE BLOOD CELL COUNT,WBC 15.34 K/uL (3.9-11.3)
[2025-04-05] MEDS: Sodium Ferric Gluconate Cmplex 125 MG in Sodium Chloride 0.9% 100 ML IV SCH (09:41)
[2025-04-07 08:29] VITALS: BP 126/71; PULSE 79
== END 2025-04-07 11:39 | disposition home or self-care (01) | DRG 805 ==
LOC: MW.OBCHECK 17:37 → MW.OB 17:37 → MW.OBCHECK 21:27 → OBSVTOIN 04-04 22:48 → MW.OB 04-05 02:38
PROVIDERS: ADMIT Obstetrics & Gynecology; ATTEND Obstetrics & Gynecology
PROC: 10E0XZZ Delivery of Products of Conception, External Approach (ICD-10-PCS; principal; 2025-04-04)
PROC: 3E0R3BZ Introduction of Anesthetic Agent into Spinal Canal, Percutaneous Approach (ICD-10-PCS; 2025-04-04)
PROC: 10907ZC Drainage of Amniotic Fluid, Therapeutic from Products of Conception, Via Natural or Artificial Opening (ICD-10-PCS; 2025-04-04)
PROC: 3E0234Z Introduction of Serum, Toxoid and Vaccine into Muscle, Percutaneous Approach (ICD-10-PCS; 2025-04-04)
DX: O99.02 Anemia complicating childbirth (principal); O60.13X0 Preterm labor second trimester with preterm delivery third trimester, not applicable or unspecified; Z37.0 Single live birth; Z3A.36 36 weeks gestation of pregnancy; Z79.899 Other long term (current) drug therapy; Z23 Encounter for immunization
CPT/HCPCS: 01967; 36415; 51702; 59025; 59409; 76815; 76815-26; 82803; 84112; 85025; 85027; 86592; 86850; 86900; 86901; A9270-GY; J0665; J2371; J2795; J2916; J7120